=== PATIENT | female | born 1995 | race African-American/Black ===

== ENCOUNTER 2017-01-31 00:07 | Emergency (ER) ==
[2017-01-31 00:16] VITALS: BP 118/62
[2017-01-31] MEDS ORDERED: VITA50TA43 PO (00:20)
== END 2017-01-31 01:06 | disposition left against medical advice (07) ==
LOC: M ED 00:07
DX: Z53.29 Procedure and treatment not carried out because of patient's decision for other reasons (principal)

== ENCOUNTER 2017-04-14 17:13 | Emergency (ER) | payer SELFPAY ==
[~2017-04-14] VITALS: Ht 177.8 cm; Wt 59.5 kg
[~2017-04-14 17:13] MED LIST: VITA50TA43 PO
[2017-04-14 17:14] VITALS: BP 108/62
[2017-04-14] MEDS ORDERED: PREN1TAB26 PO (17:48)
== END 2017-04-14 17:34 | disposition admitted as inpatient to this hospital (09) ==
LOC: M ED 17:13
DX: M54.9 Dorsalgia, unspecified (principal); Z53.21 Procedure and treatment not carried out due to patient leaving prior to being seen by health care provider

== ENCOUNTER 2017-04-14 17:42 | Inpatient (IN) | payer OTHER, SELFPAY ==
[~2017-04-14] VITALS: Ht 170.2 cm; Wt 61.1 kg
[2017-04-14] MEDS ORDERED: PREN1TAB26 PO (17:48)
[2017-04-14 19:24] LABS: CONTROL LINE UCG INT CTR LINE PRESENT
[2017-04-14] MEDS ORDERED: ONDANSETRON 4MG/2ML VIAL (J2405) IV ONE (20:00)
[2017-04-14] MEDS ORDERED: NS 1,000 ML IV ONE (20:00)
[2017-04-14] MEDS ORDERED: MORPHINE 4 MG/ML 1ML SYRINGE IV ONE (20:30)
[2017-04-14 21:29] LABS: BASO % 0.1 % (0.0-1.0); IMMATURE GRANULOCYTE % 0.5 % (0-0); LYMPH % 4.8 % (24.0-44.0); MEAN CORPUSCULAR HEMOGLOBIN 30.6 pg (27.0-33.0); MEAN CORPUSCULAR HGB CONC 33.5 g/dl (32.0-36.5); MEAN CORPUSCULAR VOLUME 91.3 fl (80.0-96.0); MONO # 0.5 10^3/uL (0.0-0.8); MONO % 2.6 % (0.0-5.0); NEUTROPHILS # 18.8 10^3/uL (1.8-7.7); PLATELET COUNT, AUTOMATED 185 10^3/uL (150-450); RED CELL DISTRIBUTION WIDTH 12.8 % (11.5-14.5); WHITE BLOOD COUNT 20.5 10^3/uL (4.0-10.0)
--- NOTE | 2017-04-14 21:30 | REPUSA ---
Clinical history: Renal failure. Findings: The urinary bladder appears unremarkable, measuring 2.5 x 4.4 x 1.7 cm. No urinary bladder masses are seen. The right kidney measures 10.9 x 4.8 x 4.5 cm. The left kidney measures 12.3 x 5.6 x 6.5 cm. The kidneys demonstrate normal echotexture and echogenicity. There is no evidence of hydrone phrosis or nephrolithiasis. No renal masses are seen. No free fluid is appreciated. Impression: Unremarkable ultrasound examination of the kidneys.
--- NOTE | 2017-04-14 21:40 | REPUSA ---
OBSTETRICAL ULTRASOUND INDICATION: OB screening. FINDINGS: A single live intrauterine gestation was identified with a heart rate of 165 bpm. The amniotic fluid index was normal measuring 17.0 cm. The placenta was anterior, without evidence of pl acenta previa. The fetus was in a cephalic lie. The cervix measures 4.1 cm in length and is closed. E stimated weight is 362 g. The cranium and ventricles are unremarkable. Posterior fossa is within normal limits. The spine demonstrates normal contour and appearance. The orbits, facial anatomy, nasal anatomy, and lip s are normal in appearance. All 4 extremities appear grossly unremarkable. A four-chamber heart is ap preciated. The stomach, kidneys, bladder, and diaphragm are intact. A three-vessel umbilical co rd with normal cord insertion is appreciated. BIOMETRIC MEASUREMENTS BPD 4.9 cm HC 17.8 cm AC 15.7 cm FL 3.3 cm IMPRESSION: 1. Single live fetus based on today's measurements at 20 weeks 2 days, with estimated due date of 08/30. 2. No abnormality detected on the survey.
[2017-04-14 21:53] LABS: ALBUMIN 3.5 GM/DL (3.2-5.2); ALBUMIN/GLOBULIN RATIO 0.95 (1.00-1.93); ALKALINE PHOSPHATASE 60 U/L (45-117); ALT/SGPT 17 U/L (12-78); ANION GAP 8 MEQ/L (8-16); AST/SGOT 18 U/L (15-37); BILIRUBIN,DIRECT < 0.1 MG/DL (0.0-0.2); BILIRUBIN,TOTAL 0.3 MG/DL (0.2-1.0); BLOOD UREA NITROGEN 11 MG/DL (7-18); CALCIUM LEVEL 9.2 MG/DL (8.5-10.1); CARBON DIOXIDE LEVEL 25 MEQ/L (21-32); CHLORIDE LEVEL 107 MEQ/L (98-107); CREATININE FOR GFR 0.92 MG/DL (0.55-1.02); GLOMERULAR FILTRATION RATE > 60.0 (>60); GLUCOSE, FASTING 84 MG/DL (70-105); POTASSIUM SERUM 3.7 MEQ/L (3.5-5.1); SODIUM LEVEL 140 MEQ/L (136-145); TOTAL PROTEIN 7.2 GM/DL (6.4-8.2)
[2017-04-14] MEDS ORDERED: cefTRIAXone SOD 1 GM in D5W 50 ML IV ONE (22:30)
[2017-04-14] MEDS ORDERED: PERCOCET 5MG/325MG TAB PO PRN (23:30)
[2017-04-15] MEDS: MORPHINE 2 MG/ML 1ML SYRINGE IV PRN ×2 (01:49→18:35)
[2017-04-15 02:40] VITALS: BP 113/55
[2017-04-15] MEDS: LR 1,000 ML IV SCH ×3 (02:45→18:35)
[2017-04-15 07:34] LABS: BASO % 0.1 % (0.0-1.0); EOS % 0.3 % (0.0-3.0); IMMATURE GRANULOCYTE % 0.6 % (0-0); LYMPH # 1.3 10^3/uL (1.5-6.5); MEAN CORPUSCULAR HGB CONC 34.6 g/dl (32.0-36.5); MEAN CORPUSCULAR VOLUME 89.6 fl (80.0-96.0); MONO # 0.9 10^3/uL (0.0-0.8); MONO % 5.9 % (0.0-5.0); NEUTROPHILS # 12.1 10^3/uL (1.8-7.7); NEUTROPHILS % 84.1 % (36.0-66.0); PLATELET COUNT, AUTOMATED 164 10^3/uL (150-450); RED CELL DISTRIBUTION WIDTH 12.6 % (11.5-14.5); WHITE BLOOD COUNT 14.4 10^3/uL (4.0-10.0)
[2017-04-15 08:00] VITALS: BP 95/54
[2017-04-15] MEDS: PERCOCET 5MG/325MG TAB PO PRN ×3 (10:20→21:51)
[2017-04-15] MEDS: ONDANSETRON 4MG/2ML VIAL (J2405) IV PRN ×3 (10:20→22:28)
[2017-04-15 12:00] VITALS: BP 104/55
[2017-04-15 16:00] VITALS: BP 109/59
[2017-04-15 20:30] VITALS: BP 96/52
[2017-04-15] MEDS: PROMETHAZINE 25 MG TAB PO PRN (21:50)
[2017-04-15] MEDS: cefTRIAXone SOD 1 GM in D5W 50 ML IV SCH (23:30)
[2017-04-16] VITALS (7 sets, daily range): BP systolic 99–106; BP diastolic 48–64
[2017-04-16] MEDS: LR 1,000 ML IV SCH ×3 (03:38→20:04)
[2017-04-16] MEDS: PERCOCET 5MG/325MG TAB PO PRN ×5 (03:39→21:47)
--- NOTE | 2017-04-16 07:26 | IPNPDOC ---
Text Note Date of Service The patient was seen on 04/16/17. NOTE Hospital Day 2 for pyelonephritis in [place] is a 21yo G1 at 19+ wks EGA who was admitted for pyelonephritis. She continues to have left sided back pain, heat compress helped last night. Had 3 episodes of emesis yesterday, but kept dinner down. Does not feel subjective chills or fever. Denies LOF/VB/ctxs. +FM. PNC uncomplicated Afebrile x 24 hours, normal HR, normotensive Gen: NAD, AOx3, resting on her side in bed CV: RRR, no murmurs Pulm: CTAB, no wheeze/crackles/rhales Abd: soft, gravid, nontender to palpation Back: positive left CVA tenderness Ext: no edema Doptones - WNL Labs on admission: WBC 20.5, UA multiple WBCs, 1+ bacteria Radiology: normal OB US and normal renal US - no hydronephrosis A/P: 21yo G1 at 19wks EGA on hospital day two admitted for pyelonephritis based on back pain, +CVA tenderness, leukocytosis, and bacteruria. Hemodynamically stable at this time, afebrile x24 hours. Receiving rocephin. --continue close monitoring --maintenance IV fluids, regular diet --will continue rocephin 1gm IV q24h for rx for pyelonephritis until tomorrow when 48 hours afebrile --doptones daily --PO and IV pain meds ordered prn pain --anticipate discharge tomorrow with keflex for 10 day course and prompt clinic follow up Dr. Zheng Sharma ([facility])MD FREDDY Fishbone I+O Mercedes HAYES I+O Vital Signs Date Time Temp Pulse Resp B/P (MAP) Pulse Ox O2 Delivery O2 Flow Rate FiO2 04/16/17 04:15 18 04/16/17 03:30 99.0 71 101/54 (70) 100 Room Air ZHENG SHARMA MD Apr 16, 2017 07:26
[2017-04-16] MEDS: ONDANSETRON 4MG/2ML VIAL (J2405) IV PRN (07:37)
[2017-04-16] MEDS: MORPHINE 2 MG/ML 1ML SYRINGE IV PRN (14:16)
[2017-04-16] MEDS: PROMETHAZINE 25 MG TAB PO PRN (16:41)
[2017-04-16] MEDS: cefTRIAXone SOD 1 GM in D5W 50 ML IV SCH (22:02)
[2017-04-17] MEDS: PERCOCET 5MG/325MG TAB PO PRN ×2 (03:06→07:49)
[2017-04-17] MEDS: LR 1,000 ML IV SCH (05:12)
[2017-04-17 07:56] VITALS: BP 98/57
--- NOTE | 2017-04-17 10:23 | DSES ---
DATE OF ADMISSION: 04/14/2017 DATE OF DISCHARGE: 04/17/2017 DISCHARGE NOTE: 21-year-old, 1, at 19 weeks of gestation, had 2 day history of back pain, reported chills and fever at home. Some nausea but no vomiting. When she was seen in admission, she had costovertebral angle (CVA) tenderness, leukocytosis, bacteriuria, all suggestions of signs and symptoms of pyelonephritis. Ultrasound indicated no hydronephrosis. She received Rocephin 1 gram IV every 24 for therapy and will be covered with cephalexin by mouth for 10-14 days. Admitting hemoglobin 10.6, hematocrit 31.6, platelets 185. All chemistry was normal. Followup hemoglobin 9.2, hematocrit 26.6 and platelets were 164. She had toxicology screen, which is negative. Her white count originally was 20.5. It has dropped down to 14.4. Her blood pressure is 103/51, respirations 16, pulse 76, temperature 98.3. Urine was 1.023, pH of 6, +1 for protein, 2+ for ketones, 3+ for blood, and 1+ for esterase. Urine culture is pending. She is feeling much better today, is well hydrated. Was on IV antibiotics. Transitioned to oral antibiotics and was using Percocet for pain management. In summary, we have a 21-year-old with acute pyelonephritis treated and prophylactically given medications to followup in the office at the appropriate interval. The rest the examination is unremarkable. She is normocephalic, atraumatic. Neck full range of motion. Pupils equal and reactive to light. Distal pulses are symmetric. No evidence of deep venous thrombosis (DVT), pulmonary embolism (PE) or superficial phlebitis. Chest is clear bilaterally to bases. No wheezes or rhonchi. The uterus is appropriate symphysis fundus height. Four quadrant bowel sounds are noted. No rashes, lesions or pruritus. No arthralgia or myalgia. No complaint of cough, wheezes, shortness of breath or dyspnea on exertion. No bleeding. Neuro complete. The only thing she complained about is back pain, which is subsequently resolving. No diabetic issues. No [employer]. Past medical, surgical and family history noncontributory. She does not smoke, drink, abuse drugs. No domestic violence. to a soldier. She is going home to visit relatives. In summary, we have acute pyelonephritis, 19-week gestation, discharged improved.
== END 2017-04-17 09:05 | disposition home or self-care (01) | DRG 781 ==
LOC: M ED 17:42 → M ED INP 23:20 → M PED 04-15 02:40
PROVIDERS: ADMIT Obstetrics & Gynecology; ATTEND Obstetrics & Gynecology
DX: O23.02 Infections of kidney in pregnancy, second trimester (principal); N10 Acute pyelonephritis; Z3A.19 19 weeks gestation of pregnancy

== ENCOUNTER 2017-08-28 13:44 | Outpatient (CLI) | payer OTHER | END 2017-08-28 15:15 | disposition home or self-care (01) | LOC: M LDO 13:44 | DX: O47.1 False labor at or after 37 completed weeks of gestation (principal); Z3A.39 39 weeks gestation of pregnancy | CPT/HCPCS: 59025 ==

== ENCOUNTER 2017-08-29 06:28 | Inpatient (IN) | payer OTHER ==
[2017-08-29] MEDS ORDERED: LR 1,000 ML IV (07:32)
[2017-08-29 08:02] LABS: HEMATOCRIT 33.1 % (36.0-47.0); HEMOGLOBIN 11.1 g/dl (12.0-16.0); MEAN CORPUSCULAR HEMOGLOBIN 29.4 pg (27.0-33.0); MEAN CORPUSCULAR HGB CONC 33.5 g/dl (32.0-36.5); MEAN CORPUSCULAR VOLUME 87.8 fl (80.0-96.0); PLATELET COUNT, AUTOMATED 190 10^3/uL (150-450); RED BLOOD COUNT 3.77 10^6/uL (4.00-5.40); RED CELL DISTRIBUTION WIDTH 12.3 % (11.5-14.5); WHITE BLOOD COUNT 15.2 10^3/uL (4.0-10.0)
[2017-08-29] MEDS: LACTATED RINGER'S 1000 ML IV (08:23)
[2017-08-29] MEDS ORDERED: FENTANYL 2MCG/ML ROPIVACAINE 0.2% IN 0.9% NACL 200ML IVBAG As Ordered (08:25)
[2017-08-29] MEDS ORDERED: REFRIGERATOR IV KEYS XX (09:00)
[2017-08-29] MEDS ORDERED: ONDANSETRON 4MG/2ML VIAL (J2405) IV ×2 (09:00→10:45)
[2017-08-29] MEDS ORDERED: EPIDURAL/PCA KEYS XX (09:00)
[2017-08-29] MEDS ORDERED: LACTATED RINGER'S 1000 ML IV (09:00)
[2017-08-29] MEDS: PRENATAL VITAMINS CHEWABLE TABLET PO (09:00)
[2017-08-29] MEDS ORDERED: NALOXONE INJ 0.4 MG/1 ML VIAL (J2310) IV (09:00)
[2017-08-29] MEDS ORDERED: EPIDURAL COMMENT XX (09:00)
[2017-08-29] MEDS ORDERED: diphenhydrAMINE INJ 50MG/ML VIAL (J1200) IV (09:00)
[2017-08-29] MEDS ORDERED: ePHEDrine SULFATE 25 MG/5 ML(5MG/ML) SYRINGE IV (09:00)
[2017-08-29] MEDS ORDERED: FENTANYL/ROPIVACAINE/NACL BAG 200 ML EPIDURAL (09:00)
[2017-08-29] MEDS ORDERED: OXYTOCIN 30 UNITS IN 0.9% NaCl 500ML IV BAG (J2590) As Ordered (09:58)
[2017-08-29] MEDS: OXYTOCIN DRIP 30 UNITS in APPROPRIATE DILUENT 1 EA IV (10:42)
[2017-08-29] MEDS ORDERED: ANUSOL HC CREAM 30GM TOP (10:45)
[2017-08-29] MEDS ORDERED: PROMETHAZINE 25 MG TAB PO (10:45)
[2017-08-29] MEDS ORDERED: MOM 30ML SUSPENSION UDC PO (10:45)
[2017-08-29] MEDS ORDERED: DIBUCAINE 1% OINTMENT 30GM TOP (10:45)
[2017-08-29] MEDS: IBUPROFEN 800 MG TAB PO ×2 (12:46→21:26)
[2017-08-29] MEDS: ACETAMINOPHEN 500 MG TAB PO ×2 (15:20→23:21)
[2017-08-29] MEDS: DOCUSATE SODIUM 100 MG CAP PO (22:30)
[2017-08-30] MEDS: ACETAMINOPHEN 500 MG TAB PO ×2 (05:44→17:52)
[2017-08-30] MEDS: PRENATAL VITAMINS CHEWABLE TABLET PO (07:41)
[2017-08-30] MEDS: IBUPROFEN 800 MG TAB PO ×3 (13:13→21:21)
== END 2017-08-31 12:55 | disposition home or self-care (01) | DRG 775 ==
LOC: M LDO 06:28 → M LDI 07:31 → M OBS 13:13
PROVIDERS: Obstetrics & Gynecology
PROC: 10E0XZZ Delivery of Products of Conception, External Approach (ICD-10-PCS; principal; 2017-08-29)
PROC: 0HQ9XZZ Repair Perineum Skin, External Approach (ICD-10-PCS; 2017-08-29)
DX: O70.0 First degree perineal laceration during delivery (principal); Z3A.39 39 weeks gestation of pregnancy; Z37.0 Single live birth